=== PATIENT | male | born 1975 | race American Indian/Alaskan Native ===

== ENCOUNTER 2020-10-21 06:12 | Emergency (ER) | payer OTHER ==
[2020-10-21] MEDS ORDERED: ASPIRIN 325 MG TAB PO ONE (08:24)
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
[2020-10-21 10:41] LABS: Alanine Aminotransferase 29 units/L (7-56); Albumin 4.1 g/dL (3.9-5); BUN/Creatinine Ratio 18; Blood Urea Nitrogen 14 mg/dL (9-20); Calcium 9.3 mg/dL (8.4-10.2); Hemolysis Index 5
[2020-10-21 10:52] LABS: Basophils # (Auto) 0.1 K/mm3 (0.0-0.1); Eosinophils # (Auto) 0.3 K/mm3 (0.0-0.4); Eosinophils % (Auto) 2.6 % (0.0-4.3); Hematocrit 39.8 % (35.5-45.6); Hemoglobin 13.6 gm/dl (11.8-15.2); Lymphocytes # (Auto) 2.9 K/mm3 (1.2-5.4); Lymphocytes % (Auto) 27.8 % (13.4-35.0); Mean Corpuscular HGB Conc 34 % (32-34); Mean Corpuscular Volume 90 fl (84-94); Monocytes # (Auto) 0.9 K/mm3 (0.0-0.8); Platelet Count 331 K/mm3 (140-440); Red Blood Count 4.44 M/mm3 (3.65-5.03); Red Cell Distribution Width 12.6 % (13.2-15.2)
[2020-10-21 16:25] VITALS: BP 164/108
--- NOTE | 2020-10-21 17:25 | Electrocardiograph Report ---
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
--- NOTE | 2020-10-21 21:15 | Emergency Department Report ---
ED General Adult HPI - General Chief complaint: High BP Stated complaint: LUMP BEHIND LT NIPPLE Source: patient Mode of arrival: Ambulatory Limitations: No Limitations - History of Present Illness Initial comments: Patient is a 45-year-old -[place] male with no past medical history presents to the ED with acute onset persistent left breast painful swelling mild erythematous maculopapular rash for the last 1 month intermittently. Patient states that the rash has been having thick purulent discharge with malodorous smell intermittently for the last 2 weeks the last time of which was 1 week ago. Patient states that in the last 1 week his blood pressure has also been significantly elevated because of persistent left-sided chest wall pain from the swollen rash. Patient denies shortness of breath, fever, chills, nausea, vomiting, dizziness, syncope, abdominal pain, traumatic injury, cough, numbness and tingling or weakness of upper and lower extremities bilaterally. MD Complaint: left chest wall painful swollen rash -: Sudden, month(s) (1) Location: chest (left breast) Radiation: non-radiation Severity scale (0 -10): 7 Quality: aching, sharp Consistency: constant Improves with: none Worsens with: movement Associated Symptoms: denies other symptoms, rash (swollen mildly erythematous rash on left breast wall). denies: confusion, chest pain, cough, diaphoresis, fever/chills, headaches, loss of appetite, malaise, nausea/vomiting, shortness of breath, syncope, other Treatments Prior to Arrival: NSAID - Related Data Previous Rx's Medication Instructions Recorded Last Taken Type Clindamycin [Clindamycin CAP] 300 mg PO Q8HR #60 capsule 10/21/20 Unknown Rx Ibuprofen [Motrin] 800 mg PO Q8HR PRN #30 tablet 10/21/20 Unknown Rx Ondansetron [Zofran Odt] 4 mg PO Q8HR PRN #15 tab.rapdis 10/21/20 Unknown Rx Sulfamethoxazole/Trimethoprim 1 each PO Q12H #20 tablet 10/21/20 Unknown Rx [Bactrim DS TAB] amLODIPine 5 mg PO DAILY #30 tab 10/21/20 Unknown Rx Allergies Allergy/AdvReac Type Severity Reaction Status Date / Time No Known Allergies Allergy Verified 10/21/20 08:18 ED Review of Systems ROS: Stated complaint: LUMP BEHIND LT NIPPLE Other details as noted in HPI Constitutional: denies: chills, fever Eyes: denies: eye pain, eye discharge, vision change ENT: denies: ear pain, throat pain Respiratory: denies: cough, shortness of breath, wheezing Cardiovascular: chest pain (Left-sided chest wall pain due to erythematous maculopapular rash on left breast). denies: palpitations Endocrine: no symptoms reported Gastrointestinal: denies: abdominal pain, nausea, vomiting, diarrhea Genitourinary: denies: urgency, dysuria Musculoskeletal: denies: back pain, joint swelling, arthralgia Skin: denies: rash, lesions Neurological: denies: headache, weakness, paresthesias Psychiatric: denies: anxiety, depression Hematological/Lymphatic: denies: easy bleeding, easy bruising ED Past Medical Hx - Medications Home Medications: Home Medications Medication Instructions Recorded Confirmed Last Taken Type Clindamycin [Clindamycin CAP] 300 mg PO Q8HR #60 capsule 10/21/20 Unknown Rx Ibuprofen [Motrin] 800 mg PO Q8HR PRN #30 tablet 10/21/20 Unknown Rx Ondansetron [Zofran Odt] 4 mg PO Q8HR PRN #15 tab.rapdis 10/21/20 Unknown Rx Sulfamethoxazole/Trimethoprim 1 each PO Q12H #20 tablet 10/21/20 Unknown Rx [Bactrim DS TAB] amLODIPine 5 mg PO DAILY #30 tab 10/21/20 Unknown Rx ED Physical Exam - General Limitations: No Limitations General appearance: alert, in no apparent distress - Head Head exam: Present: atraumatic, normocephalic, normal inspection - Eye Eye exam: Present: normal appearance, PERRL, EOMI Pupils: Present: normal accommodation - ENT ENT exam: Present: normal exam, normal orophraynx, mucous membranes moist, TM's normal bilaterally, normal external ear exam - Neck Neck exam: Present: normal inspection, full ROM - Respiratory Respiratory exam: Present: normal lung sounds bilaterally, chest wall tenderness (Palpable left breast tenderness due to mild erythematous, swelling nonfluctuant maculopapular rash). Absent: respiratory distress, wheezes, rales, rhonchi, accessory muscle use, decreased breath sounds, prolonged expiratory - Cardiovascular Cardiovascular Exam: Present: regular rate, normal rhythm, normal heart sounds. Absent: systolic murmur, diastolic murmur, rubs, gallop - GI/Abdominal GI/Abdominal exam: Present: soft, normal bowel sounds. Absent: tenderness, guarding, rebound, hyperactive bowel sounds, hypoactive bowel sounds, organomegaly - Extremities Exam Extremities exam: Present: normal inspection, full ROM, normal capillary refill - Back Exam Back exam: Present: normal inspection, full ROM. Absent: tenderness, CVA tenderness (R), CVA tenderness (L), muscle spasm, paraspinal tenderness, vertebral tenderness - Neurological Exam Neurological exam: Present: alert, oriented X3, CN II-XII intact, normal gait, reflexes normal - Psychiatric Psychiatric exam: Present: normal affect, normal mood - Skin Skin exam: Present: warm, dry, intact, rash (Palpable tenderness on left breast due to mildly erythematous maculopapular swelling nonfluctuant rash), erythema ED Course Vital Signs 10/21/20 10/21/20 08:18 16:24 Temperature 97.8 F 98.1 F Pulse Rate 87 88 Respiratory 20 18 Rate Blood Pressure 164/108 Blood Pressure 191/127 [Left] O2 Sat by Pulse 98 98 Oximetry ED Medical Decision Making - Lab Data Result diagrams: 10/21/20 09:34 10/21/20 09:34 - Medical Decision Making This is a 45-year-old -[place] male with no past medical history presents to the ED with acute onset persistent left breast painful swelling mild erythematous maculopapular rash for the last 1 month intermittently. Patient states that the rash has been having thick purulent discharge with malodorous smell intermittently for the last 2 weeks the last time of which was 1 week ago. Patient states that in the last 1 week his blood pressure has also been significantly elevated because of persistent left-sided chest wall pain from the swollen rash. In the ED, patient is alert and oriented x3 and is not in any distress but hypertensive in triage. Lab test results were reviewed and are all nonactionable. Patient was discharged home on pain medications and antibiotics and given a referral to the general surgeon on-call Dr. Servin for follow-up. Patient is advised to contact Dr. Servin's office first thing in the morning on Thursday, October 22, 2020 to schedule a follow-up appointment for further evaluation. Patient was advised to return to the ED immediately if symptoms get worse. - Differential Diagnosis Cellulitis; folliculitis; cutaneous abscess; mastitis Critical care attestation.: If time is entered above; I have spent that time in minutes in the direct care of this critically ill patient, excluding procedure time. ED Disposition Clinical Impression: Cellulitis of left breast, Uncontrolled stage 2 hypertension, Acute folliculitis Cutaneous abscess of trunk, unspecified Qualifiers: Site of cutaneous abscess of trunk: chest wall Qualified Code(s): L02.213 - Cutaneous abscess of chest wall Disposition: HOME / SELF CARE / HOMELESS Is pt being admited?: No Does the pt Need Aspirin: No Condition: Stable Instructions: Hypertension (ED), Skin Abscess, [id number], Cellulitis, Adult, [id number], Hypertension, Adult, [id number] Additional Instructions: Take medication with food, drink plenty of fluids and follow-up with a general surgeon Dr. Servin for further evaluation. Contact orthopedics office first thing in the morning on Thursday, October 02, 2020 to schedule a follow-up appointment for reevaluation. Consider following up with your primary care physician in the days for reevaluation. Return to the ER immediately if symptoms get worse. Prescriptions: amLODIPine 5 mg PO DAILY #30 tab Sulfamethoxazole/Trimethoprim [Bactrim DS TAB] 1 each PO Q12H #20 tablet Clindamycin [Clindamycin CAP] 300 mg PO Q8HR #60 capsule Ibuprofen [Motrin] 800 mg PO Q8HR PRN #30 tablet PRN Reason: Pain , Severe (7-10) Ondansetron [Zofran Odt] 4 mg PO Q8HR PRN #15 tab.rapdis PRN Reason: Nausea Referrals: SUREKHA SERVIN MD [Staff Physician] - 3-5 Days [facility] [place] [Provider Group] - 7-10 days Time of Disposition: 21:13 Print Language: LUXEMBOURGER
== END 2020-10-21 21:21 | disposition home or self-care (01) ==
LOC: ED 06:12
DX: N61.0 Mastitis without abscess (principal); L02.231 Carbuncle of abdominal wall; L73.9 Follicular disorder, unspecified; I10 Essential (primary) hypertension; Z79.899 Other long term (current) drug therapy
CPT/HCPCS: 36415; 71046; 80053; 84484; 85025; 93005